=== PATIENT | female | born 1995 ===

== ENCOUNTER 2017-10-09 07:08 | Inpatient (IN) | payer BC, MEDICAID ==
[~2017-10-09] VITALS: Ht 172.7 cm; Wt 87.1 kg
[2017-10-09 07:30] VITALS: BP 125/75; Ht 172.7 cm; Wt 87.1 kg
--- NOTE | 2017-10-09 08:37 | History & Physical ---
History of Present Illness Age of Patient: 22 : 1 Para or TPAL: 0 EDC per LMP: Oct 10, 2017 Estimated Gestational Age: 39.6 Chief Complaint contractions History of Present Illness The patient is a 22 year old 1 para 0 admitted at 39 6/7 weeks estimated gestational age with an estimated date of delivery 10/10/17. Patient is admitted with complaint of contractions . No vaginal bleeding. Good movement and occasional contractions. She was evaluated for active labor. She had an uncomplicated course. Her record was reviewed. History Allergies: Coded Allergies: Penicillins (Verified Allergy, Intermediate, HIVES, 10/09/17) Mother told her to say she was allergic, had unknown reaction in childhood Exam General Exam Vital Signs Vital Signs Date Time Temp Pulse Resp B/P (MAP) Pulse Ox O2 Delivery O2 Flow Rate FiO2 10/09/17 07:30 98.2 76 18 125/75 (92) Room Air Cardiovascular: Regular Rate and Rhythm Respiratory: No Respiratory Distress Abdomen: Gravid - Non-Tender Extremities: No Edema Cervical Dialation: 2 (rn) Cervical Effacement (%): 75 Station: -2 Presentation: Vertex Uterine Contractions(Q min): 5 Uterine Contraction Strength: Mild Fetus Heart Tones: 130 FHT Category: I Medical Decision Making Data Points Result Diagram: 10/09/17 0929 Assessment and Plan Problems: (1) Threatened labor Assessment & Plan: deirde, will monitor for cervical change SARA BALDWIN MD Oct 09, 2017 08:37
[2017-10-09] MEDS ORDERED: OXYTOCIN 30 UNIT/D5LR 500 ML 500 ML IV PRN (09:10)
[2017-10-09] MEDS ORDERED: FLUSH 10 ML SYR IVP PRN (09:10)
[2017-10-09] MEDS ORDERED: FAMOTIDINE(*) 20MG/50ML PREMIX 50 ML IVPB PRN (09:10)
[2017-10-09] MEDS ORDERED: cefOXitin/DEX(*) 2GM/50ML PREM 50 ML IVPB PRN (09:10)
[2017-10-09] MEDS ORDERED: LIDOCAINE 1% LOCAL 300 MG/30ML INJ PRN (09:10)
[2017-10-09] MEDS ORDERED: DLR(*) 1000 ML BAG 1,000 ML IV PRN (09:10)
[2017-10-09] MEDS ORDERED: METOCLOPRAMIDE 10 MG/2 ML SDV IVP PRN (09:10)
[2017-10-09 09:45] LABS: PLATELET COUNT, AUTOMATED 214 K/uL (150-450)
[2017-10-09] MEDS: fentaNYL CITR 100 MCG/2 ML AMP IVP PRN ×2 (09:57→12:44)
[2017-10-09] MEDS: LR(*) 1000 ML BAG 1,000 ML IV PRN ×3 (09:58→17:53)
[2017-10-09] MEDS ORDERED: EPIDURAL KEYS XX PRN (12:17)
[2017-10-09] MEDS ORDERED: fentaNYL CITR 100 MCG/2 ML AMP IT PRN (12:20)
[2017-10-09] MEDS ORDERED: ePHEDrine 25 MG/5 ML DISP.SYR IVP PRN (12:20)
[2017-10-09] MEDS ORDERED: LIDO/EPI 2% MPF 1:200,000 20ML EPI PRN (12:20)
[2017-10-09] MEDS ORDERED: LIDOCAINE/PF 2% 200MG/10ML AMP 200 MG/10 ML AMPUL EPI PRN (12:20)
[2017-10-09] MEDS ORDERED: FENTANYL/ROPIVACAINE 100 ML BAG EPI PRN (12:20)
[2017-10-09] MEDS ORDERED: BUPIVACAINE 0.25% MPF INJ EPI PRN (12:20)
[2017-10-09] MEDS ORDERED: BUPIVACAINE 0.5% INJ 30ML VIAL EPI PRN (12:20)
[2017-10-09] MEDS ORDERED: ONDANSETRON 4 MG/2 ML VIAL ONE (12:36)
--- NOTE | 2017-10-09 16:44 | Labor Progress Note ---
Labor Subjective Progress Notes Subjective comfortable with epidural. Labor Pain: Comfortable Labor Objective Vital Signs Vital Signs Date Time Temp Pulse Resp B/P (MAP) Pulse Ox O2 Delivery O2 Flow Rate FiO2 10/09/17 07:30 98.2 76 18 125/75 (92) Room Air Cervical Dialation: 9 Cervical Effacement (%): 95 Station: 0 Uterine Contractions(Q min): 3 Uterine Contraction Strength: Strong Fetus Heart Tones: 140 FHT Category: I Other Result Diagram: 10/09/17 0929 Assessment and Plan Problems: (1) Threatened labor (2) Active labor at term Assessment & Plan: progressed adequately AROM clear fluid, will monitor for change SARA BALDWIN MD Oct 09, 2017 16:44
--- NOTE | 2017-10-09 18:50 | Labor Progress Note ---
Labor Subjective Progress Notes Subjective comfortable with epidural Vaginal Discharge/Fluid: Clear Fluid Labor Pain: Comfortable Labor Objective Vital Signs Vital Signs Date Time Temp Pulse Resp B/P (MAP) Pulse Ox O2 Delivery O2 Flow Rate FiO2 10/09/17 07:30 98.2 76 18 125/75 (92) Room Air Cervical Dialation: 10 Station: +1 Presentation: Vertex Uterine Contractions(Q min): 3 Fetus Heart Tones: 120 Heart Tone Variabilty: Moderate Other Result Diagram: 10/09/17 0929 Assessment and Plan Problems: (1) Threatened labor (2) Active labor at term Assessment & Plan: will allow to labor down and then push SARA BALDWIN MD Oct 09, 2017 18:50
--- NOTE | 2017-10-09 21:12 | OB Delivery Note ---
Delivery Note Vaginal Delivery Type: Spont. Vaginal Delivery Delivery Date: Oct 09, 2017 Delivery Time: 20:48 Estimated Gestational Age(wks): 39.6 Delivery Anesthesia: Epidural Sex: Male Weight (gms): 3372 Apgars: 1 Minute (8), 5 Minute (9) Repair Needed: Laceration, Superficial, Vaginal, Labial Estimated Blood Loss: 350 Notes: SPONTANEOUS LABOR, PROGRESSED THROUGH LABOR TO COMPLETE AFTER RECEIVING AN EPIDURAL, AROM CLEAR FLUID, PUSHED EFFECTIVELY. NUCHAL CORD X1, SUPERFICIAL LACERATIONS REPAIRED WITH 3-0 VICRYL Sand Molder in Attendence: No Copies to: SARA BALDWIN MD, JOHN MD Oct 09, 2017 21:12
[2017-10-09] MEDS ORDERED: LANOLIN OINT 7 GM TUBE TP PRN (21:15)
[2017-10-09] MEDS ORDERED: INFLUENZA VIRUS VAC 0.5 ML SYR IM ONLY ONE (21:15)
[2017-10-09] MEDS ORDERED: GLYCERIN/WITCH HAZEL LEAF 1 PK TOP PRN (21:15)
[2017-10-09] MEDS ORDERED: DIPHTH/TETANUS/ACEL. PERTUSSIS IM ONE (21:15)
[2017-10-09] MEDS ORDERED: BENZOCAINE 20% 60 ML BTL TP PRN (21:15)
[2017-10-09] MEDS ORDERED: MEASLES,MUMP,RUBELLA VAC 0.5ML SC ONE (21:15)
[2017-10-09] MEDS ORDERED: MAGNESIUM HYDROXIDE* 30ML UDCP PO PRN (21:15)
[2017-10-09] MEDS ORDERED: ACETAMINOPHEN 325 MG TAB PO PRN (21:15)
[2017-10-09] MEDS ORDERED: HYDROCORTISONE 2.5% CR 30GM TB PR PRN (21:15)
[2017-10-09] MEDS ORDERED: HYDROmorphone HCL 2 MG TAB PO PRN (21:15)
[2017-10-09] MEDS: DOCUSATE CALCIUM 240 MG CAP PO SCH (21:36)
[2017-10-09 22:31] VITALS: BP 123/65
--- NOTE | 2017-10-09 23:07 | Procedure Note ---
Anesthetic Placement Note Anesthesia Plan: CSE Permit for Anesthesia Signed: Yes Anesthesia Technique: Patient Sitting Anesthesia Prep: Betadine Interspace: L 3-4 Local Anesthetic: 1% Lidocaine, 25 Gauge Needle Amount Local - cc's: 4 Anesthesia Needle: 17g Touhy/Schliff Anesthesia Attempts: 1 Loss of Resistance: Normal Saline Depth of SATINDER (cm): 6.5 Intrathecal Needle: 27 Gauge Pencan Cerebral Spinal Fluid: Yes, Clear Catheter Insertion (cm): 6 Catheter Type: Burnett - Spring Wound Epidural Dressing: Tegaderm, Tape, Adhesive [place] Anesthesia Tray: Lot Number ([id number]), Expiration Date (2018-05-16), Reference Number ([id number]) Anesthesia Medications: Intrathecal Dose: mcg Fentanyl (20), mg Marcaine MPF (2.5), Time (1252) Epidural Test Dose: 1.5 Lido/Epi (1:200,000), Dose - mL (3), Time (1256), Negative Epidural Loading Dose: 0.2% Ropivicaine, With Fentanyl 2mcg/ml, Dose - ml (15) , Time (1258), Other (In 5 ml increments) Epidural Infusion: 0.2% Ropivicaine, With Fentanyl 2mcg/ml, Start Time: (1310) Epidural Pump Setting: Bolus Dose - mL (4), Lockout - Minutes (15), Maintenance Rate - mL/hr (8), Maximum per Hour - mL (24) Complications: None Comment: 1740 epidural bolus of 10ml infusion mix for C/O discomfort back, pelvis. 1755 Pt. reports bolus has helped, feeling much better, encouraged to give herself another bolus via pump at first increase in discomfort. MILAD TRIMBLE CRNA Oct 09, 2017 13:24
--- NOTE | 2017-10-09 23:08 | Anesthesia OB Pre-Anes Eval ---
History of Present Illness Anesthesia Start Date: Oct 09, 2017 Anesthesia Start Time: 12:40 OB Anesthesia Diagnosis: spontaneous labor EDC: Oct 10, 2017 : 1 Para: 0 Pain Ratin Result Diagram: 10/09/17 0929 Height (Inches): 68.00 Weight (Pounds): 192 BMI Calculated: 29.19 Past Medical History Medical History: asthma Surgical History: noncontributory Previous Anesthesia: general Attended Childbirth Classes?: No Hx Anesthesia Reactions: No Hx Family Anesthesia Reaction: No Current Medications: pain medication (had IV Fentanyl before epidural placement ) Allergies: Coded Allergies: Penicillins (Verified Allergy, Intermediate, HIVES, 10/09/17) Mother told her to say she was allergic, had unknown reaction in childhood Anesthesia OB ROS Pulmonary: asthma Airway Class: l GI ROS: clear liquids, ice chips Last Solids Date: Oct 09, 2017 Last Solids Time: 06:00 ASA Classification: 2 Assessment and Plan Anesthesia Plan: CSE Anesthesia Stop Day: Oct 09, 2017 Anesthesia Stop Time: 22:00 Epidural Catheter Removal: Removed by: (Epicath to be removed by medical staff services coordinator at time convenient for mother.) MILAD TRIMBLE CRNA Oct 09, 2017 13:33
[2017-10-09 23:21] VITALS: BP 114/61
[2017-10-10] MEDS ORDERED: IBUPROFEN 800 MG TAB PO SCH (01:00)
[2017-10-10 04:05] VITALS: BP 122/73
[2017-10-10] MEDS: IBUPROFEN 800 MG TAB PO SCH ×3 (05:17→21:03)
[2017-10-10] MEDS ORDERED: MEASLES,MUMP,RUBELLA VAC 0.5ML SC ONE (06:40)
[2017-10-10] MEDS ORDERED: IBUP800T37 PO (07:04)
[2017-10-10] MEDS ORDERED: HYDR2TAB4 PO (07:04)
--- NOTE | 2017-10-10 07:04 | OB/GYN Progress Note ---
OB Subjective Progress Notes Subjective Pain controlled, Tolerating diet and activity. Baby . Normal lochia. GI: NEG Nausea, NEG Vomiting : Voiding Well OB Objective Physical Exam Vital Signs Date Time Temp Pulse Resp B/P (MAP) Pulse Ox O2 Delivery O2 Flow Rate FiO2 10/10/17 04:05 97.3 55 16 122/73 (89) Room Air Cardiovascular: Regular Rate and Rhythm Respiratory: No Respiratory Distress, Clear to Auscultation Abdomen: Fundus Firm Extremities: No Edema Result Diagram: 10/10/17 0510 Assessment and Plan Problems: (1) Threatened labor Status: Resolved (2) Active labor at term Status: Resolved (3) care following vaginal delivery Assessment & Plan: Pain controlled, Tolerating diet and activity. Baby . Normal lochia. SARA BALDWIN MD Oct 10, 2017 07:04
--- NOTE | 2017-10-10 07:06 | OB/GYN Discharge Summary ---
Discharge Summary Reason for Hosp/Final Diag: (1) Threatened labor Status: Resolved (2) Active labor at term Status: Resolved (3) care following vaginal delivery Hospital Course & Plan: spontaneous labor, vaginal delivery, no da 2, Pain controlled, Tolerating diet and activity. Baby . Normal lochia. Lates Vital Signs Vital Signs Date Time Temp Pulse Resp B/P (MAP) Pulse Ox O2 Delivery O2 Flow Rate FiO2 10/10/17 04:05 97.3 55 16 122/73 (89) Room Air Weight (Pounds): 192 Result Diagram: 10/10/17 0510 Condition: Improved Discharge: Home, Self Shelter Meds Active Scripts Ibuprofen (IBUPROFEN) 800 Mg Tablet, 1 TAB PO Q8H, #30 TAB 0 Refills Take with food every 8 hours. Prov:SARA BIRCH MD 10/10/17 Hydromorphone Hcl (HYDROMORPHONE HCL) 2 Mg Tablet, 2-4 MG PO Q4H for PAIN, #20 TAB 0 Refills Prov:SARA BIRCH MD 10/10/17 Follow up with: Dr. Birch [phone] Follow up in: 6 wks PP or PO Discharge Diet: As Tolerates Discharge Activity: Pelvic Rest Copies to: SARA BIRCH MD, JOHN MD Oct 10, 2017 07:06
[2017-10-10 08:06] VITALS: BP 109/56
[2017-10-10] MEDS: DOCUSATE CALCIUM 240 MG CAP PO SCH (08:33)
[2017-10-10] MEDS: MULTIVITAMINS (PRENATAL) TAB PO SCH (08:33)
--- NOTE | 2017-10-10 10:22 | Anesthesia Post Eval Note ---
Anesthesia Post Eval Note Stable, afebrile Pt able to participate in Eval: Yes Cardiovascular Status: Satisfactory Respiratory Status: Satisfactory Pain Managment: Satisfactory PO Nausea/Vomiting: Satisfactory Temperature Management: Satisfactory Mental Status: Satisfactory, Alert, Oriented X3 Post-Op Hydration Status: Satisfactory, Tolerating PO Well, Voiding w/o Difficulty Anesthesia Type: CSE Anesthesia Tolerance: S/P vaginal delivery with CSE for labor analgesia. Ambulatory without S/S PDPH , has some mild soreness at epidural insertion site (not unusual). MILAD TRIMBLE [employer]ARE[employer] TRAINER Oct 10, 2017 10:22
[2017-10-10 11:49] VITALS: BP 125/78
[2017-10-10 15:30] VITALS: BP 117/66
[2017-10-10 19:17] VITALS: BP 99/55
[2017-10-10] MEDS ORDERED: DOCUSATE CALCIUM 240 MG CAP PO ONE (20:55)
[2017-10-11 00:21] VITALS: BP 119/76
[2017-10-11] MEDS: IBUPROFEN 800 MG TAB PO SCH (04:34)
[2017-10-11 07:11] VITALS: BP 107/55
--- NOTE | 2017-10-11 07:22 | OB/GYN Progress Note ---
OB Subjective Progress Notes Subjective Doing well. Pain controlled and ambulating well. Bleeding light and pain controlled. GI: NEG Nausea : Voiding Well Pain: Mild OB Objective Physical Exam Vital Signs Date Time Temp Pulse Resp B/P (MAP) Pulse Ox O2 Delivery O2 Flow Rate FiO2 10/11/17 00:21 98.2 48 16 119/76 (90) 10/10/17 15:30 Room Air General Appearance: Alert/Awake/No Acute Distress Cardiovascular: Normal Rhythm & Peripheral Pulses, Regular Rate and Rhythm Respiratory: No Respiratory Distress, Clear to Auscultation Abdomen: Soft, Non-Tender, Non-Distended, Fundus Firm Extremities: No Edema Psychological: Alert & Oriented X3, Appropriate Mood & Affect Result Diagram: 10/10/17 0510 Assessment and Plan ADDRESSER Plan: Discharge Home Today Problems: (1) Threatened labor Status: Resolved (2) Active labor at term Status: Resolved (3) care following vaginal delivery Assessment & Plan: Ambulating well. Home today. JAVI DORADO MD Oct 11, 2017 07:22
[2017-10-11] MEDS: MULTIVITAMINS (PRENATAL) TAB PO SCH (10:41)
[2017-10-11] MEDS: DOCUSATE CALCIUM 240 MG CAP PO SCH (10:41)
[2017-10-11] MEDS ORDERED: MEASLES,MUMP,RUBELLA VAC 0.5ML SUBQ ONE (13:30)
== END 2017-10-11 12:15 | disposition home or self-care (01) | DRG 775 ==
LOC: OB 07:08
PROVIDERS: ADMIT Obstetrics & Gynecology; ATTEND Obstetrics & Gynecology
PROC: 10E0XZZ Delivery of Products of Conception, External Approach (ICD-10-PCS; principal; 2017-10-09)
PROC: 0HQ9XZZ Repair Perineum Skin, External Approach (ICD-10-PCS; 2017-10-09)
PROC: 10907ZC Drainage of Amniotic Fluid, Therapeutic from Products of Conception, Via Natural or Artificial Opening (ICD-10-PCS; 2017-10-09)
DX: O69.81X0 Labor and delivery complicated by cord around neck, without compression, not applicable or unspecified (principal); O70.0 First degree perineal laceration during delivery; Z37.0 Single live birth; Z3A.39 39 weeks gestation of pregnancy; Z88.0 Allergy status to penicillin; Z23 Encounter for immunization
CPT/HCPCS: 36415; 81001; 85025; 85027; 86850; 86900; 86901; 90707; 96372; J2405; J2590; J3010; J7120; S0020